=== PATIENT | female | born 1965 | race Two or more races ===

== ENCOUNTER 2017-09-24 06:49 | Emergency (ER) | payer OTHER ==
[~2017-09-24] VITALS: Ht 162.6 cm; Wt 59.0 kg
[~2017-09-24 06:49] MED LIST: ANAPROX275 MG; FIORICET TABLET1 TAB; OSEL75CA PO; RELAFEN500 MG
[2017-09-24] MEDS ORDERED: ZESTRIL10 M1 (07:59)
[2017-09-24] MEDS ORDERED: NORVASC5 MG (07:59)
== END 2017-09-24 10:59 | disposition home or self-care (01) ==
LOC: ER 06:49
DX: B34.9 Viral infection, unspecified (principal)

== ENCOUNTER 2018-08-16 15:58 | Emergency (ER) | payer OTHER ==
[~2018-08-16] VITALS: Ht 157.5 cm; Wt 61.2 kg
[~2018-08-16 15:58] MED LIST changes: +NORVASC5 MG; +ZESTRIL10 M1
== END 2018-08-16 20:31 | disposition home or self-care (01) ==
LOC: ER 15:58
DX: M75.51 Bursitis of right shoulder (principal)